=== PATIENT | male | born 1980 | race Caucasian/White ===

== ENCOUNTER 2024-11-24 10:08 | Outpatient (REF) | payer OTHER, SELFPAY ==
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
--- OUTSIDE RECORDS SUMMARY | 2024-11-24 11:11 | XMS_ITS | Clinical Summary ---
Author Organization [address] Building Address [address] [place] [address] Phone Care Team Providers Care Area Manager Name Role Phone Physician, No Pcp Primary Care Provider Unavaila ble Encounters Date Type Department Care Team Description 09/11/2024 1:35 PM EDT - 09/11/2024 11:59 PM EDT Hospital Encounter Radiology Department - [address] [address] Unstable burst fracture of T7-t8 vertebra, subsequent encounter for fracture with routine healing Discharge Disposition: Home or Self Care from Last 3 Months Social History Tobacco Use Types Packs/Day Years Used Date Smoking Tobacco: Never Assessed Sex and Gender Information Value Date Recorded Sex Assigned at Not on file Legal Sex Male 1:05 PM EDT Gender Identity Not on file Sexual Orientation Not on file Plan of Treatment Health Maintenance Due Date Last Done Comments DTaP,Tdap,and Td Vaccines (1 - Tdap) 1998 Hepatitis B Vaccines (1 of 3 - 19+ 3-dose series) 1998 Cholesterol Screening (Lipid Panel) 12/02/2023 Colorectal Cancer Screening: Colonoscopy 12/02/2023 HIV Screening 12/02/2023 Hepatitis C Screening 12/02/2023 Social Influencers of Health Screening 12/02/2023 COVID-19 Vaccine (1 - 2023-2 5 season) 2024 Depression Screening 05/06/2024 Influenza Vaccine (#1) 2025 HIB Vaccines Aged Out No longer eligi ble based on patient's age to complete this topic HPV Vaccines Aged Out No longer eligi ble based on patient's age to complete this topic Hepatitis A Vaccines Aged Out No long er eligible based on patient's age to complete this topic IPV Vaccines Aged Out No longer eligi ble based on patient's age to complete this topic MMR Vaccines Aged Out No longer eligi ble based on patient's age to complete this topic Meningococcal ACWY Vaccine Aged Out N o longer eligible based on patient's age to complete this topic Meningococcal B Vaccine Aged Out No l onger eligible based on patient's age to complete this topic Pneumococcal Vaccine: Pediat rics (0 to 5 Years) and At-Risk Patients (6 to 49 Years) Aged Out No longer eligible b ased on patient's age to complete this topic RSV Immunization Patients Un yue 20 months Aged Out No longer eligible b ased on patient's age to complete this topic Varicella Vaccines Aged Out No longer eligible based on patient's age to complete this topic Procedures Procedure Name Priority Date/Time Associated Diagnosis Comments MR THORACIC SPINE WO CONTRAST Routine 09/11/2024 2:29 PM EDT Unstable burst fracture of T7-t8 vertebra, subsequent encounter for fracture with routine healing from Last 3 Months Results * MR Thoracic Spine wo Contrast (09/11/2024 2:29 PM EDT) Anatomical Region Laterality Modality T-spine, Spine Magnetic Resonan ce 09/11/2024 5:51 PM EDT Impressions 09/14/2024 4:50 PM EDT Changes of posterior spinal fusion at T7-T10 with signal artifacts limiting assessment at these levels. Stable mild superior endplate compression deformity of T9. Multilevel degenerative changes without high-grade neural foraminal narrowing or spinal canal stenosis. Chronically dislocated left ribs at the costovertebral joints with probable mild edema at the pseudoarticulations with the vertebral bodies. POS - [id number] -------- FINAL REPORT -------- Dictated By: Aliza Dietz Dictated Date: 09/11/2024 17:51 ET Assigned Physician: Aliza Dietz Reviewed and Electronically Signed By: Aliza Dietz Signed Date: 09/14/2024 16:50 ET Workstation ID: [id number] Transcribed By: Self Edit Transcribed Date: 09/11/2024 18:46 ET Narrative 09/14/2024 4:50 PM EDT EXAM: Thoracic spine MRI HISTORY: History of T8 and T9 fractures with spinal cord injury status post T7- T9 decompression. Continued back pain and paresthesia. COMPARISON: 09/22/2023 CORRELATION: Thoracic spine radiography 07/30/2024 TECHNIQUE: Exam performed on a 1.5 Jenny high-field MRI scanner. Multiplanar imaging performed without contrast. FINDINGS: Changes of posterior spinal fusion at T7-T10 with bilateral pedicle screws at all levels. Hardware results in signal artifacts limiting assessment of regional structures. Conus medullaris terminates at L1 which is within normal limits. No signal abnormality in the visualized cord. Spinal cord is distorted by signal artifacts at the T7-T10 levels due to the fusion hardware. Known spinal cord transection at the T8-9 level is difficult to accurately evaluate. Spinal cord appears atrophied at these levels with areas of T2 hyperintense signal, likely sequela of previous injury. Deformity of T9 from previous fracture with a stable mild superior endplate compression deformity. No new compression deformities. Fairly diffuse anteriorly dislocated left ribs at the costovertebral joints. Suggestion of mild edema at the pseudoarticulations of the dislocated ribs with the vertebral bodies. Stable left paracentral/foraminal small disc osteophyte complex at T1-T2. Stable small left foraminal disc protrusion at T10-11. Otherwise, no significant disc bulging or evidence of disc protrusion or extrusions at other levels. Mild facet arthropathy in the lower spine and on the left at T5-6 and T1-2. Anterior endplate spurring in the lower spine. No high-grade neural foraminal narrowing or high-grade spinal canal stenosis at the visualized levels. Procedure Note Aliza Dietz MD - 09/14/2024 EXAM: Thoracic spine MRI HISTORY: History of T8 and T9 fractures with spinal cord injury statuspost T7-T9 decompression. Continued back pain and paresthesia. COMPARISON: 09/22/2023 CORRELATION: Thoracic spine radiography 07/30/2024 TECHNIQUE: Exam performed on a 1.5 Jenny high-field MRI scanner.Multiplanar imaging performed without contrast. FINDINGS: Changes of posterior spinal fusion at T7-T10 with bilateral pedicle screwsat all levels. Hardware results in signal artifacts limiting assessmentof regional structures. Conus medullaris terminates at L1 which is within normal limits. Nosignal abnormality in the visualized cord. Spinal cord is distorted bysignal artifacts at the T7- T10 levels due to the fusion hardware. Knownspinal cord transection at the T8-9 level is difficult to accuratelyevaluate. Spinal cord appears atrophied at these levels with areas of A8qvaciantwcpz signal, likely sequela of previous injury. Deformity of T9 from previous fracture with a stable mild superiorendplate compression deformity. No new compression deformities. Fairlydiffuse anteriorly dislocated left ribs at the costovertebral joints.Suggestion of mild edema at the pseudoarticulations of the dislocated ribswith the vertebral bodies. Stable left paracentral/foraminal small disc osteophyte complex at T1-T2.Stable small left foraminal disc protrusion at T10-11. Otherwise, nosignificant disc bulging or evidence of disc protrusion or extrusions atother levels. Mild facet arthropathy in the lower spine and on the leftat T5-6 and T1-2. Anterior endplate spurring in the lower spine. Nohigh-grade neural foraminal narrowing or high-grade spinal canal stenosisat the visualized levels. IMPRESSION: Changes of posterior spinal fusion at T7-T10 with signal artifactslimiting assessment at these levels. Stable mild superior endplatecompression deformity of T9. Multilevel degenerative changes withouthigh-grade neural foraminal narrowing or spinal canal stenosis.Chronically dislocated left ribs at the costovertebral joints withprobable mild edema at the pseudoarticulations with the vertebralbodies. POS - [id number] -------- FINAL REPORT -------- Dictated By: Aliza Dietz Dictated Date: 09/11/2024 17:51 ET Assigned Physician: Aliza Dietz Reviewed and Electronically Signed By: Aliza Dietz Signed Date: 09/14/2024 16:50 ET Workstation ID: [id number] Transcribed By: Self Edit Transcribed Date: 09/11/2024 18:46 ET us Carlotta JOAQUIN IMG MRI PROCEDURES Final Re sult from Last 3 Months Insurance [employer] Care Teams Area Manager Relationship Specialty Start Date End Date Physician, No Pcp PCP - General 05/22/24
--- OUTSIDE RECORDS SUMMARY | 2024-11-24 11:11 | XMS_ITS | Clinical Summary ---
Author Organization [facility] Address [address] [place] [address] Phone Care Team Providers Care Salt Lifter Name Role Phone Everardo Ornelas MD Primary Care Provider [phone] Demario Haro MD Unavailable [phone] Allergies No known active allergies Medications pregabalin (Lyrica) 75 MG capsule Take 75 mg by mouth in the morning. 11/25/2023 Active midodrine (Proamatine) 10 MG tablet TAKE 1 TABLET BY MOUTH THREE TIMES A DAY FOR 90 DAYS Active BUSPIRONE HCL PO Take by mouth. Active TAMSULOSIN HCL PO Take by mouth. Active omeprazole (PriLOSEC) [address] capsule Take 40 mg by mouth in the morning. Do not crush or chew.. 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 Closed fracture of ninth thoracic vertebra ([facility]) 09/22/2023 Other closed fracture of daniel th thoracic vertebra, initial encounter ([facility]) 09/22/2023 Neurogenic shock due to traumatic injury ([facility] 09/22/2023 MARIA ELENA (acute kidney injury) 09/22/2023 Multiple fractures of ribs, bilateral, init for clos fx 09/22/2023 Hemothorax on left 09/22/2023 Traumatic mediastinal hematoma 09/22/2023 Compression of esophagus 09/22/2023 Encounters Date Type Department Care Team Description 10/14/2024 1:00 PM EDT Office Visit [facility] Thoracic Surgery [address] [facility] [place] [phone] Margarito Ma MD Closed fracture of multiple ribs of left side, initial encounter (Primary Dx); Other injury of unspecified body region, initial encounter 10/14/2024 Travel 08/27/2024 Orders Only [facility] Neurosurgery [address] [facility] [place] [address] Provider, MD Ed from Last 3 Months Family History Relation Name Status Comments Father Alive Mother Alive Social History Tobacco Use Types Packs/Day Years Used Date Smoking Tobacco: Never Smokeless Tobacco: Never Tobacco Cessation:Counseling Given: Not Answered Alcohol Use Standard Drinks/Week Comments Not Currently 0 (1 standard drink = 0.6 oz pur e alcohol) B1300 Health Literacy Answer Date Recor ded How often do you need to hav e someone help you when you read instructions, pamphlets, or other written material from your doctor or pharmacy? Patient unable to respond 09/23/2023 [facility] Utilities Answer Date Recorded In the past 12 months has [facility] [employer], gas, oil, or water [employer] threatened to shut off services in your home? Patient unable to answer 09/23/2023 Humiliation, Afraid, Rape, a nd Kick questionnaire Answer Date Recorded Within the last year, have y ou been afraid of your partner or ex-partner? Patient unable to answer 09/23/2023 Within the last year, have y ou been humiliated or emotionally abused in other ways by your partner or ex-partner? Patient unable to answer 09/23/2023 Within the last year, have y ou been kicked, hit, slapped, or otherwise physically hurt by your partner or ex-partner? Patient unable to answer 09/23/2023 Within the last year, have y ou been raped or forced to have any kind of sexual activity by your partner or ex-partner? Patient unable to answer 09/23/2023 AUDIT-C Answer Date Recorded Q1: How often do you have a drink containing alc ohol? Monthly or less 09/24/2023 Q2: How many drinks containi ng alcohol do you have on a typical day when you are drinking? 1 or 2 09/24/2023 Q3: How often do you have si x or more drinks on one occasion? Never 09/24/2023 Hunger Vital Sign Answer Date Recorded Within the past 12 months, y ou worried that your food would run out before you got the money to buy more. Patient unable to answer 09/23/2023 Within the past 12 months, t he food you bought just didn't last and you didn't have money to get more. Patient unable to answer 09/23/2023 PRAPARE - Transportation Answer Date Re corded In the past 12 months, has l ack of transportation kept you from medical appointments or from getting medications? No 09/04 In the past 12 months, has l ack of transportation kept you from meetings, work, or from getting things needed for daily living? No 09/23/2023 Housing Stability Vital Sign Answer Richard e Recorded In the last 12 months, was t here a time when you were not able to pay the mortgage or rent on time? No 09/23/2023 Number of Places Lived in the Last Year Not on f ile 09/23/2023 In the last 12 months, was t here a time when you did not have a steady place to sleep or slept in a nursing home (including now)? No 09/23/2023 Sex and Gender Information Value Date Recorded Sex Assigned at Not on file Legal Sex Male 11:08 AM EDT Gender Identity Not on file Sexual Orientation Not on file Last Filed Vital Signs Vital Sign Reading Time Taken Comments Blood Pressure 113/72 10/14/2024 1:15 PM EDT Pulse 55 10/14/2024 1:15 PM EDT Temperature 36.3 C (97.4 F) 10/14/2024 1:15 PM EDT Respiratory Rate 18 10/14/2024 1:15 PM EDT Oxygen Saturation 100% 10/14/2024 1:15 PM EDT Inhaled Oxygen Concentration - - Weight 94.8 kg (209 lb) 10/14/2024 1:15 PM EDT Height 185.4 cm (6' 1 ) 10/14/2024 1:15 PM EDT Body Mass Index 27.57 10/14/2024 1:15 PM EDT Plan of Treatment Health Maintenance Due Date Last Done Comments CT Colonography 1979 Cologuard 1979 Colonoscopy 1979 Colorectal Cancer Screening 1979 FIT 1979 FOBT 1979 Lipid Panel 1979 Sigmoidoscopy 1979 TD Vaccine (21+ Years) 1979 MMR Vaccines (1 of 1 - Stand ena series) 02/12/1980 Hepatitis C Screening 1997 Hepatitis B Vaccines (1 of 3 - 19+ 3-dose series) 1998 Influenza Vaccine (#1) 2025 Zoster Vaccines (1 of 2) 2029 HIB Vaccines Aged Out No longer eligi [...] patient's age to complete this topic Meningococcal Vaccine Aged Out No josue obdulio eligible based on patient's age to complete this topic Pneumococcal Vaccine: Pediat rics (0 to 5 Years) and At-Risk Patients (6 to 49 Years) Aged Out No longer eligible b ased on patient's age to complete this topic Rotavirus Vaccines Aged Out No longer eligible based on patient's age to complete this topic Medical Devices Implanted Type Area Marketing Production Specialist Device Identifier Shelf Expiration Date Model / Serial / Lot Matrix Cran Duraplasty 2x2in - [id number] Implanted:Qty : 1 on 09/22/2023 by Demario Haro MD at [facility] Biological Tissue Implants-Y N/A: Vertebrae Integra Silicor [employer] KK Erika 05/05/2026 [id number] / / [id number] Graft Bone Rustam Putty 6cc - [id number] Implanted:Qty : 1 on 09/22/2023 by Demario Haro MD at [facility] Human Tissue Implants-Y N/A: Vertebrae Medtronic Aortic And Peripheral Vascular - Division Medtronic Inc 07/15/2025 [id number] / / [id number] Abel Longitudeii 5.1w561wk - [id number] Implanted:Qty : 2 on 09/22/2023 by Demario Haro MD at [facility] Spinal Rods N/A: Vertebrae Medtronic Aortic And Peripheral Vascular - Division Med[employer]onic Inc [id number] / / Screw Solera 5.5x40mm - [id number] Implanted:Qty : 2 on 09/22/2023 by Demario Haro MD at [facility] Spinal Screws N/A: Vertebrae Medtronic Aortic And Peripheral Vascular - Division Med[employer] Inc [id number] / / Screw Solera 5.5x45mm - [id number] Implanted:Qty : 6 on 09/22/2023 by Demario Haro MD at [facility] Spinal Screws N/A: Vertebrae Medtronic Aortic And Peripheral Vascular - Division Med[employer] Inc [id number] / / Screw Set Spn Breakoff 5.5mm - [id number] Implanted:Qty : 8 on 09/22/2023 by Demario Haro MD at [facility] Spinal Set Screws Or Quoc Or Plugs N/A: Vertebrae Medtronic Aortic And Peripheral Vascular - Division Med[employer] Inc [id number] / / Insurance GENERIC COMMERCIAL Advance Directives For more information, please contact: [phone] (Available ) Documents on File Type Date Recorded Patient Patient Flow Coordinator Expl anation Healthcare Proxy 10/01/2023 12:45 PM Healthcare Proxy 09/24/2023 9:54 AM Falguni Zuñiga P form * Resuscitation Status (Latest Code Status on File) Date Activated Date Inactivated Comments 09/22/2023 7:53 PM 10/03/2023 8:46 PM Question Answer Comments If no pulse and not breathing: Attempt CPR If pulse and breathing present: Intubati on and watermelon inspector mechanical ventilation * Resuscitation Status Date Activated Date Inactivated Comments 09/22/2023 6:36 PM 09/22/2023 7:53 PM Question Answer Comments If no pulse and not breathing: Attempt CPR If pulse and breathing present: Intubati on and mcfp mechanical ventilation Healthcare Agents on File Name Relationship Healthcare Agent [facility] p Communication Falguni Ramasom Spouse Health Care Proxy Care Teams Salt Lifter Relationship Specialty Start Date End Date Everardo Ornelas MD [address] [place] [address] PCP - General 09/22/23 Demario Haro MD [address] [address] Surgeon Neurosurgery 10/03/23
--- OUTSIDE RECORDS SUMMARY | 2024-11-24 11:11 | XMS_ITS | Encounter Summary ---
Author Organization [facility] Address [address] [place] [id number] Phone Care Team Providers Care Director Public Name Role Phone Everardo Ornelas DO Primary Care Provider [phone] Encounter Details Date Type Department Care Team (Late st Contact Info) Description 06/06/2018 Ancillary Orders Virtual Department [address] [place] [address] Nicolás Kendall MD [address] [place] [address], [address] [place] [address] [email or web address] Other general symptoms and signs Social History Tobacco Use Types Packs/Day Years Used Date Smoking Tobacco: Never Assessed Sex and Gender Information Value Date Recorded Sex Assigned at Not on file Legal Sex Male 9:23 PM EDT Gender Identity Not on file Sexual Orientation Not on file documented as of this encounter Plan of Treatment Not on file documented as of this encounter Visit Diagnoses Diagnosis Other general symptoms and signs documented in this encounter Care Teams Director Public Relationship Specialty Start Date End Date Everardo Ornelas DO [email or web address] PCP - General Internal Medicine 01/07/18 documented as of this encounter Additional Source Comments The information contained in this document represents components of the legal health record. It is not the complete legal health record.[facility]
[2024-11-24 13:08] LABS: MANUAL DIFF FLAG NO
[2024-11-24 13:28] LABS: Appearance Urine Turbid; Glucose Urine UA Negative (Negative); PH 6.0 (5.0-9.0); Specific Gravity - Urine 1.025 (1.005-1.025)
[2024-11-24 13:48] LABS: Hematocrit 42.6 % (42.0-52.0); Hemoglobin 14.7 g/dl (14.0-18.0); Imm Gran Abs Auto 0.02 X10*3/uL (0.00-0.03); Imm Gran Pct Auto 0.4 % (0.0-0.4); Lymphocytes Absolute Auto 1.6 X10*3/uL (1.2-4.9); Mean Corpuscular HGB Conc 34.5 g/dl (31.0-36.0); Mean Corpuscular Hemoglobin 29.5 pg (27.0-33.0); Mean Corpuscular Volume 85.4 fL (80.0-98.0); NRBC Abs Auto 0.000 X10*3/uL (0.0-0.012); NRBC Pct Auto 0.0 /100WBC (0.0-0.2); Platelet Count 257 X10*3/uL (160-400); Red Blood Count 4.99 X10*6/uL (4.60-5.80); White Blood Count 5.1 X10*3/uL (4.8-10.8)
[2024-11-24 14:00] LABS: Hemoglobin A1C 119.3466 umol/L; Total Hemoglobin (HGBA1C) 3821.8078 umol/L
[2024-11-24 14:40] LABS: Alanine Aminotransferase 24 U/L (0-40); Albumin Level 4.5 g/dL (3.5-5.0); Alkaline Phosphatase 66 U/L (39-117); Anion Gap 12 (12-20); Aspartate Amino Transferase 29 U/L (5-37); Blood Urea Nitrogen 18 mg/dL (9-16); Calcium 9.4 mg/dL (8.4-10.2); Carbon Dioxide 25 mmol/L (22-29); Chloride 107 mmol/L (96-108); Estimated Glomerular Filt Rate > 60; Iron 81 mcg/dL (45-160); Percent Iron Saturation 30 % (15-50); Potassium 4.1 mmol/L (3.3-5.1); Prostate Specific Antigen 0.36 ng/mL (<0.05-4.0); Sodium 140 mmol/L (135-145); Total Iron Binding Capacity 272 mcg/dL (228-428); Total Protein 7.6 g/dL (6.5-8.0); Unsaturated Iron Binding 191 ug/dL
[2024-11-24 14:48] LABS: Ferritin 306 ng/mL (20-250)
[2024-11-28 15:54] LABS: Testosterone, Free 37.2 pg/mL (35.0-155.0)
== END 2024-11-24 10:09 | disposition home or self-care (01) ==
LOC: HO.MANLDS 10:08
PROVIDERS: Visit Provider Physician Assistant
DX: Z12.5 Encounter for screening for malignant neoplasm of prostate (principal); Z13.1 Encounter for screening for diabetes mellitus; N39.46 Mixed incontinence
CPT/HCPCS: 36415; 80053; 81001; 82728; 83036; 83540; 84153; 84402; 84403; 85025